=== PATIENT | male | born 1955 | race Caucasian/White ===

== ENCOUNTER 2017-05-30 17:28 | Emergency (ER) | payer MEDICAID ==
[~2017-05-30] VITALS: Ht 180.3 cm; Wt 102.1 kg
[~2017-05-30 17:28] MED LIST: AMARYL 2MG TABLE2 MG PO; ANAPROX DS550 MG PO; CYCLOBENZAPRINE10 M3 PO; GABAPENTIN300 MG PO; JANUVIA100 MG PO; METFORMIN HCL1000 MG PO; PAROXETINE20 MG PO
[2017-05-30] MEDS ORDERED: XARELTO20 MG PO (17:39)
[2017-05-30] MEDS ORDERED: ATORVASTATIN CA40 MG PO (17:39)
[2017-05-30] MEDS ORDERED: LISINOPRIL5 MG PO (17:39)
[2017-05-30] MEDS ORDERED: PANTOPRAZOLE SO40 M1 PO (17:39)
[2017-05-30] MEDS ORDERED: TAMSULOSIN HCL0.4 MG PO (17:40)
--- OUTSIDE RECORDS SUMMARY | 2017-05-30 17:41 | External Medical Summary Rpt ---
Author Author JOE Address Unknown Phone [email or web address] Purpose Continuity of Care Document - 04-06-2017 through 2016
--- OUTSIDE RECORDS SUMMARY | 2017-05-30 17:41 | External Medical Summary Rpt ---
Author Author JOE Address Unknown Phone [email or web address] Purpose Continuity of Care Document - 04-06-2017 through 2016
--- OUTSIDE RECORDS SUMMARY | 2017-05-30 17:42 | External Medical Summary Rpt ---
Demographics Preferred Language French Marital Status Unknown Druze Affiliation Unknown Race Unknown Ethnic Group Unknown Author Author , JOE PAIGE Address Unknown Phone Immunization Unable to retrieve immunization data due to connection failure with Immunization Registry. Please try again later.
--- OUTSIDE RECORDS SUMMARY | 2017-05-30 17:42 | External Medical Summary Rpt ---
Author Author [employer] Hunt, [employer] Organization [employer] Address Unknown Phone Unavailable Results Basic metabolic panel in Blood Observa Value Referen Units Interpr Notes Date tion ce etation Range Urea 7 - 18 mg/dL High No Apr 06 nitrogen informati 2017 9:04 [Mass/vol on in AM ume] in source Serum or data Plasma Calcium 8.5 - mg/dL Normal No Apr 06 [Mass/vol 10.1 informati 2017 9:04 ume] in on in AM Serum or source Plasma data Chloride 98 - 107 mmoL/L Normal No Mar 7 [Moles/vo informati 2017 9:04 lume] in on in AM Serum or source Plasma data Carbon 21.0 - mmoL/L Normal No Apr 06 dioxide, 32.0 informati 2017 9:04 total on in AM [Moles/vo source lume] in data Serum or Plasma Creatinin 0.70 - mg/dL High No Mar 7 e 1.30 informati 2017 9:04 [Mass/vol on in AM ume] in source Serum or data Plasma Estimated >60 ML/MIN No REFERENCE Lazarus 7 informati RANGE: 2017 9:04 glomerula on in >60 AM r source ML/MIN/1. filtratio data 73 SQUARE n rate METERSIf (GF this patient is -A merican, then multiply theresult by 1.210. Glucose 74 - 106 mg/dL High No Mar 7 [Mass/vol informati 2017 9:04 ume] in on in AM Serum or source Plasma data Potassium 3.5 - 5.1 mmoL/L Normal No Mar 7 informati 2017 9:04 [Moles/vo on in AM lume] in source Serum or data Plasma Sodium 136 - 145 mmoL/L Low No Mar 7 [Moles/vo informati 2017 9:04 lume] in on in AM Serum or source Plasma data Thyroxine (T4) free [Mass/volume] in Serum or Plasma Observa Value Referen Units Interpr Notes Date tion ce etation Range Thyroxine 0.76 - ng/dL Normal No Apr 06 (T4) 1.46 informati 2017 9:04 free on in AM [Mass/vol source ume] in data Serum or Plasma Lipid 1996 panel in Serum or Plasma Observa Value Referen Units Interpr Notes Date tion ce etation Range Cholester < 200 mg/dL No No Apr 06 ol informati informati 2017 9:04 [Moles/vo on in on in AM lume] in source source Unspecifi data data ed specimen Cholester 40 - 60 MG/DL Normal No Apr 06 ol in HDL informati 2017 9:04 on in AM [Mass/vol source ume] in data Serum or Plasma Cholester 0 - 130 mg/dL Normal No Apr 06 ol in LDL informati 2017 9:04 on in AM [Mass/vol source ume] in data Serum or Plasma by calculati on Triglycer 30 - 200 mg/dL Normal No Apr 06 aure informati 2017 9:04 [Moles/vo on in AM lume] in source Serum or data Plasma Cholester 0 - 40 No Normal No Apr 06 ol in informati informati 2017 9:04 VLDL on in on in AM [Mass/vol source source ume] in data data Serum or Plasma Hepatic function 2000 panel in Serum or Plasma Observa Value Referen Units Interpr Notes Date tion ce etation Range Albumin 3.4 - 5.0 gm/dL Normal No Apr 06 [Mass/vol informati 2017 9:04 ume] in on in AM Serum or source Plasma data Alkaline 46 - 116 U/L Normal No Apr 06 phosphata informati 2017 9:04 se on in AM [Enzymati source c data activity/ volume] in Serum or Plasma Bilirubin 0.0 - 0.2 mg/dL Normal No Apr 06 .direct informati 2017 9:04 [Mass/vol on in AM ume] in source Serum or data Plasma Bilirubin 0 - 0.9 mg/dL Normal No Apr 06 .indirect informati 2017 9:04 on in AM [Mass/vol source ume] in data Serum or Plasma Bilirubin 0.2 - 1.0 mg/dL Normal No Apr 06 .total informati 2017 9:04 [Mass/vol on in AM ume] in source Serum or data Plasma Aspartate 15 - 37 U/L Low No Apr 06 informati 2017 9:04 aminotran on in AM sferase source [Enzymati data c activity/ volume] in Serum or Plasma Alanine 12 - 78 U/L Normal No Apr 06 aminotran informati 2017 9:04 sferase on in AM [Enzymati source c data activity/ volume] in Serum or Plasma Protein 6.4 - 8.2 gm/dL Normal No Apr 06 [Mass/vol informati 2017 9:04 ume] in on in AM Serum or source Plasma data Thyrotropin [Units/volume] in Serum or Plasma Observa Value Referen Units Interpr Notes Date tion ce etation Range Thyrotrop 0.358 - uIU/ml Normal No Apr 06 in 3.740 informati 2017 9:04 [Units/vo on in AM lume] in source Serum or data Plasma CBC W Auto Differential panel in Blood Observa Value Referen Units Interpr Notes Date tion ce etation Range Basophils 0 - 0.2 K/MM3 Normal No Apr 06 informati 2016 9:04 [#/volume on in AM ] in source Blood by data Automated count Basophils 0.1 - 2.0 % Normal No Apr 06 /100 informati 2017 9:04 leukocyte on in AM s in source Blood by data Automated count Eosinophi 0.0 - 0.4 K/mm3 Normal No Apr 06 ls informati 2017 9:04 [#/volume on in AM ] in source Blood by data Automated count Eosinophi 0.1 - % Normal No Apr 06 ls/100 12.0 informati 2017 9:04 leukocyte on in AM s in source Blood by data Automated count Granulocy 1.3 - 8.0 K/mm3 Normal No Apr 06 ryan informati 2017 9:04 [#/volume on in AM ] in source Blood by data Automated count Granulocy 37.0 - % Normal No Apr 06 ryan/100 80.0 informati 2017 9:04 leukocyte on in AM s in source Blood by data Automated count Hematocri 42.0 - % Normal No Apr 06 t [Volume 52.0 informati 2016 9:04 on in AM Fraction] source of Blood data Hemoglobi 14.1 - g/dL Normal No Apr 06 n 18.0 informati 2016 9:04 [Mass/vol on in AM ume] in source Blood data Lymphocyt 0.7 - 4.5 K/mm3 Normal No Apr 06 es informati 2016 9:04 [#/volume on in AM ] in source Unspecifi data ed specimen by Automated count Lymphocyt 10 - 50 % Normal No Mar 7 es informati 2017 9:04 [#/volume on in AM ] in source Unspecifi data ed specimen by Automated count Erythrocy 27 - 31.2 pg High No Mar 7 te mean informati 2017 9:04 corpuscul on in AM ar source hemoglobi data n [Entitic mass] Erythrocy 31.8 - g/dl Normal No Apr 06 te mean 35.4 informati 2017 9:04 corpuscul on in AM ar source hemoglobi data n concentra tion [Mass/vol ume] by Automated count Erythrocy 82.2 - fl Normal No Apr 06 te mean 97.8 informati 2017 9:04 corpuscul on in AM ar volume source [Entitic data volume] by Automated count Monocytes 0.1 - 1.0 K/mm3 Normal No Mar 7 informati 2017 9:04 [#/volume on in AM ] in source Blood by data Automated count Monocytes 1.7 - 9.3 % Normal No Mar 7 /100 informati 2017 9:04 leukocyte on in AM s in source Blood by data Automated count Platelet 7.4 - fl Low No Apr 06 mean 10.4 informati 2017 9:04 volume on in AM [Entitic source volume] data in Blood by Automated count Platelets 142 - 424 K/mm3 Normal No Mar 7 informati 2017 9:04 [#/volume on in AM ] in source Blood data Erythrocy 4.6 - 6.2 M/mm3 Normal No Mar 7 ryan informati 2017 9:04 [#/volume on in AM ] in source Amniotic data fluid Erythrocy 11.5 - % Normal No Apr 06 te 17.5 informati 2017 9:04 distribut on in AM ion width source [Entitic data volume] by Automated count Leukocyte 4.8 - K/MM3 Normal No Mar 7 s 10.8 informati 2017 9:04 [#/volume on in AM ] in source Blood data
--- OUTSIDE RECORDS SUMMARY | 2017-05-30 17:42 | External Medical Summary Rpt ---
Demographics Preferred Language Kiswahili Marital Status Unknown Yarsanism Affiliation Unknown Race Unknown Ethnic Group Unknown Author Author , JOE PAIGE Address Unknown Phone Immunization Unable to retrieve immunization data due to connection failure with Immunization Registry. Please try again later.
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
[2017-05-30 17:57] LABS: HEMOGLOBIN 14.1 g/dL (14.1-18.0); LYMPH # 1.8 K/mm3 (0.7-4.5); LYMPH % 28.1 % (10-50)
--- NOTE | 2017-05-30 18:32 | RADIOLOGY REPORT PS360 ---
CT HEAD WITHOUT CONTRAST CT BONE WINDOWS included ORDERING PHYSICIAN : Anjana Alexandre MD PATIENT AGE: 62 years GENDER: Male PROCEDURE: Routine axial images headwithout contrast. Brain & bone windows HISTORY: FALL, POSSIBLE LOC fall with loss of consciousness. Neck pain COMPARISON: No prior head CT studies FINDINGS: No acute intracranial findings. No hemorrhage. No mass effect or mass lesion. No subdural nor extra-axial collection. . Mild diffuse cerebral atrophy with this there is mild prominence of lateral ventricles and basal cisterns however the remaining clear satisfactory overall.. The posterior fossa appear satisfactory and unremarkable. The skull is intact. The visualized portions of the paranasal sinuses are clear. Mastoid air cells, middle ear & IACs are unremarkable. IMPRESSION: No acute intracranial findings. . Mild cerebral atrophy age-appropriate
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
[2017-05-30 19:10] VITALS: BP 107/69
--- NOTE | 2017-05-30 19:52 | RADIOLOGY REPORT PS360 ---
CHEST-PORTABLE Ordering Physician: Anjana Alexandre MD Patient Age: 62 years: Male HISTORY: near syncope TECHNIQUE: AP portable upright chest COMPARISON September 24, 2014 CT chestOctober 2015 CXR FINDINGS Right chest stable 2 small nodular seen just lateral to the right infrahilar region are again evident were discussed on A July 2016 CXR . These were also previously seen and discussed on a CT chest 2013,.-Appear Relatively stable since that time. Actually less evident on today's study due to overlapping structures. Left lung stable. Left lung Appears clear unremarkable. No new findings in either chest. Heart anitra and mediastinal structures unchanged. Mild arthritic changes right shoulder. IMPRESSION: =- No new nor acute findings at chest . Small nodular densities right lung, just lateral to the right infrahilar region, are again noted. These appears similar to 2014 CT chest. Which supports indolent/benign nature.. These Can be followed.
== END 2017-05-30 19:11 | disposition home or self-care (01) ==
LOC: ER 17:28
PROVIDERS: Emergency Medicine
DX: R55 Syncope and collapse (principal); S00.81XA Abrasion of other part of head, initial encounter; W18.39XA Other fall on same level, initial encounter; Y92.9 Unspecified place or not applicable

== ENCOUNTER 2017-07-07 07:54 | Day surgery (SDC) | payer MEDICAID ==
[~2017-07-07 07:54] MED LIST changes: +ATORVASTATIN CA40 MG PO; +LISINOPRIL5 MG PO; +PANTOPRAZOLE SO40 M1 PO; +TAMSULOSIN HCL0.4 MG PO; +XARELTO20 MG PO
[2017-07-07 12:12] VITALS: BP 151/84
--- NOTE | 2017-07-07 13:36 | Operative Note ---
See Addendum Procedure: Date of procedure: 07/07/17 Time of procedure: 09 Procedure performed: Implantation of loop recorder Indication: Syncope Technique: Technique: 1 percent lidocaine with epinephrine used to anesthetize the size. The LEFT anterior aspect of the chest along the LEFT sternal border. Using the preformed scalpel, an incision was made in the loop recorder was placed subcutaneously without difficulty. Following the deployment of the loop recorder interrogation of the device was performed to ensure appropriate voltage was being detected. Once this was verified (0.37 mV). Steri-Strips were placed over the incision and the patient was prepped to discharge home. Patient tolerated procedure well with minimal discomfort. Impression: Successful deployment of loop recorder Serial number: [id number] Plan: Routine post op care at 0747
--- NOTE | 2017-07-07 13:36 | Operative Note ---
See Addendum Procedure: Date of procedure: 07/07/17 Time of procedure: 09 Procedure performed: Implantation of loop recorder Indication: Syncope Technique: Technique: 1 percent lidocaine with epinephrine used to anesthetize the size. The LEFT anterior aspect of the chest along the LEFT sternal border. Using the preformed scalpel, an incision was made in the loop recorder was placed subcutaneously without difficulty. Following the deployment of the loop recorder interrogation of the device was performed to ensure appropriate voltage was being detected. Once this was verified (0.37 mV). Steri-Strips were placed over the incision and the patient was prepped to discharge home. Patient tolerated procedure well with minimal discomfort. Impression: Successful deployment of loop recorder Serial number: [id number] Plan: Routine post op care at 0146
== END 2017-07-07 10:25 ==
LOC: CATHLAB 07:54
PROVIDERS: Internal Medicine
PROC: 0JH632Z Insertion of Monitoring Device into Chest Subcutaneous Tissue and Fascia, Percutaneous Approach (ICD-10-PCS; principal; 2017-07-07 08:30)
DX: R55 Syncope and collapse (principal); R00.1 Bradycardia, unspecified; E11.9 Type 2 diabetes mellitus without complications; I82.509 Chronic embolism and thrombosis of unspecified deep veins of unspecified lower extremity; Z79.01 Long term (current) use of anticoagulants; I25.10 Atherosclerotic heart disease of native coronary artery without angina pectoris
CPT/HCPCS: C1764; G0463

== ENCOUNTER 2017-07-21 11:47 | Emergency (ER) | payer MEDICAID ==
[~2017-07-21] VITALS: Ht 180.3 cm; Wt 92.1 kg
[2017-07-21 12:12] LABS: LYMPH # 3.1 K/mm3 (0.7-4.5); LYMPH % 35.5 % (10-50)
[2017-07-21 12:18] LABS: HEMOGLOBIN 16.6 g/dL (14.1-18.0)
[2017-07-21 12:19] LABS: STOOL OCCULT BLOOD NEGATIVE (NEG)
--- NOTE | 2017-07-21 13:07 | Emergency Room Report ---
History of Present Illness Time Seen by [id number] Presenting Problem in Triage Pt arrived:Walked Presenting Problem:PT REPORTS RECAL BLEEDING THAT BEGAN TUESDAY NIGHT OF THIS PAST WEEK. PT REPORTS SEVERAL EPISODES A DAY OF FEELING THE NEED TO HAVE A BM BUT ONLY BRIGHT RED BLOOD WAS NOTED IN TOILET. 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 N Clinical Suspician of Infection? N Mental Status: 1 - Regular (Normal Baseline) Sepsis Risk:Low Sepsis Risk Have you (or family members/close friends) recently traveled outside the [place]? N If Yes, where/when: Have you had exposure to infectious disease within the past month? N TB? Other? Specify: Source patient, RN notes reviewed, RN/MD Exam Limitations no limitations Comment This is his 62-year-old male patient arriving to the emergency room with bright red blood per rectum since last Tuesday. Patient has seen his primary care provider, Corazon Le since, but did not mention this particular complaint to her. 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 Patient has had his last colonoscopy in December 2016 at [facility]. Patient does not recall the specialist's name. He has also seen Dr. Rojas in the past, at [facility], was advised that he has a history of colonic polyps, all benign. ALLERGIES Coded Allergies: No Known Allergies (12/30/15) Home Medications Reported Medications Glimepiride (Amaryl 2MG Tablet) 2 MG PO BID Lisinopril 5 MG PO DAILY #30 Atorvastatin Calcium 40 MG PO DAILY #30 Pantoprazole Sodium 40 MG PO DAILY #30 Rivaroxaban (Xarelto) 20 MG PO DAILY #30 TAMSULOSIN HCL (Tamsulosin HCl) 0.4 MG PO DAILY #30 PAROXETINE (Paroxetine HCl) 40 MG PO DAILY METFORMIN HCL (Metformin 1000MG) 1,000 MG PO BID Sitagliptin Phosphate (Januvia 100MG) 100 MG PO DAILY History Medical History General CAD? No Angina: No IN: No Hypertension? No Hyperlipidemia? No CHF? No DVT? Yes PE? No COPD? Yes Asthma? No Anemia? No GERD? No Gastric ulcers? No GI Bleed? No Hernia? No Thyroid Problems? No Hypothyroidism? No CVA? No Seizures? No Diabetes? Yes Insulin Dependent: No Insulin Pump: No Home FSBS? No Renal Insuffiency? No End Stage Renal Disease? No UTI? No Stones? No BPH? No GB Disease: No Nephritic Syndrome? No Asplenia? No Hepatitis? No Sickle Cell Disease? No Arthritis? No Migraines? No Cataracts? No Glaucoma? No MRSA? No HIV? No TB? No Anxiety? No Depression? Yes Cancer? No More? 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 Family History Family Hx Diabetes Yes CAD Yes Hypertension No Hyperlipidemia No Cancer Yes TB No Social History Smoking Hx Smoker: Current Every Day Smoker Tobacco: Yes Type Cigarettes Packs/day 1 1/2 - 2 Packs Alcohol Alcohol: No Review of Systems All Other Systems Reviewed and Negative Gastrointestinal see HPI, other (rectal bleeding) Physical Exam Vital Signs Vital Signs Date Time Temp Pulse Resp B/P Pulse O2 O2 Flow FiO2 Ox Delivery Rate 07/21 1318 98.0 72 16 123/83 97 07/21 1316 98.0 72 16 123/83 97 07/21 1154 97.9 78 18 119/81 97 General Appearance normal appearance, WD/WN, no apparent distress Respiratory Status Yes: trachea midline, chest symmetrical, non tender chest. No: respiratory distress. Lung Sounds bilateral: normal breath sounds, lungs clear. 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 No Comment Patient appears medically stable, in no acute distress. His blood work fails to reveal any anemia. Advised patient to follow-up with his gastrointestinal specialist for a reevaluation and possible repeat colonoscopy. Results/Orders Laboratory Tests 07/21/17 1215: Stool Occult Blood NEGATIVE 07/21/17 1205: TSH 0.94 07/21/17 1205: Sodium 128 L, Potassium 4.7, Chloride 94 L, Carbon Dioxide 25, BUN 38 H, Creatinine 1.3, Estimated Creat Clear 75, Estimated GFR (MDRD) 56, Glucose 277 H, Calcium 9.6, Total Bilirubin 0.9, AST 23, ALT 57, Alkaline Phosphatase 96, Total Protein 7.5, Albumin 3.9, Globulin 3.6 H, Albumin/Globulin Ratio 1.1, WBC 8.7, RBC 5.01, Hgb 16.6, Hct 45.8, MCV 91.6, RDW 12.1, Plt Count 258, MPV 7.2 L , Gran % 56.5, Gran # 4.9, Lymphocytes % 35.5, Monocytes % 5.3, Eosinophils % 2.4, Basophils % 0.3, Lymphocytes # 3.1, Monocytes # 0.5, Eosinophils # 0.2, Basophils # 0.0, PUBS MCHC 35.7 H, MCH 32.7 H Current Medication Orders Sig/Andree Start time Last Medication Dose Route Stop Time Status Admin Sodium Chloride 10 ML PRN PRN 07/21 1215 DCD IV 07/22 1202 Orders Procedure Date/time Status THYROID STIMULATING HORMONE 07/21 1211 Complete IV SALINE LOCK 07/21 1202 Active STOOL OCCULT BLOOD 07/21 1202 Complete CBC WITH AUTO DIFF 07/21 1155 Complete CHEM 12 PROFILE 07/21 1155 Complete Departure Departure Time of Disposition 1304 Disposition DC Home or Self Care(routine) Clinical Impression Primary Impression: Rectal bleeding Condition STABLE Referrals Arnoldo Abdalla MD: Today after leaving ER Sharri Loja APRN (Family) RONA ROJAS MD: Today after leaving ER Patient Instructions DI for Rectal Bleeding Additional Instructions Please follow-up with 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 Rojas or Dr. Abdalla, within th enext 3-5days. Please continue the Xarelto at this time. Discharge Counseling Counseled pt/family regarding diagnosis, test results, medications/RX, home care, follow up needs Comment Please follow-up with 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 Rojas or Dr. Abdalla, within th enext 3-5days. Please continue the Xarelto at this time. ED Critical Care Critical Care No at [id number]
--- NOTE | 2017-07-21 13:07 | Emergency Room Report ---
History of Present Illness Time Seen by [id number] Presenting Problem in Triage Pt arrived:Walked Presenting Problem:PT REPORTS RECAL BLEEDING THAT BEGAN TUESDAY NIGHT OF THIS PAST WEEK. PT REPORTS SEVERAL EPISODES A DAY OF FEELING THE NEED TO HAVE A BM BUT ONLY BRIGHT RED BLOOD WAS NOTED IN TOILET. 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 N Clinical Suspician of Infection? N Mental Status: 1 - Regular (Normal Baseline) Sepsis Risk:Low Sepsis Risk Have you (or family members/close friends) recently traveled outside the [place]? N If Yes, where/when: Have you had exposure to infectious disease within the past month? N TB? Other? Specify: Source patient, RN notes reviewed, RN/MD Exam Limitations no limitations Comment This is his 62-year-old male patient arriving to the emergency room with bright red blood per rectum since last Tuesday. Patient has seen his primary care provider, Corazon Le since, but did not mention this particular complaint to her. 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 Patient has had his last colonoscopy in December 2016 at [facility]. Patient does not recall the specialist's name. He has also seen Dr. Rojas in the past, at [facility], was advised that he has a history of colonic polyps, all benign. ALLERGIES Coded Allergies: No Known Allergies (12/30/15) Home Medications Reported Medications Glimepiride (Amaryl 2MG Tablet) 2 MG PO BID Lisinopril 5 MG PO DAILY #30 Atorvastatin Calcium 40 MG PO DAILY #30 Pantoprazole Sodium 40 MG PO DAILY #30 Rivaroxaban (Xarelto) 20 MG PO DAILY #30 TAMSULOSIN HCL (Tamsulosin HCl) 0.4 MG PO DAILY #30 PAROXETINE (Paroxetine HCl) 40 MG PO DAILY METFORMIN HCL (Metformin 1000MG) 1,000 MG PO BID Sitagliptin Phosphate (Januvia 100MG) 100 MG PO DAILY History Medical History General CAD? No Angina: No NE: No Hypertension? No Hyperlipidemia? No CHF? No DVT? Yes PE? No COPD? Yes Asthma? No Anemia? No GERD? No Gastric ulcers? No GI Bleed? No Hernia? No Thyroid Problems? No Hypothyroidism? No CVA? No Seizures? No Diabetes? Yes Insulin Dependent: No Insulin Pump: No Home FSBS? No Renal Insuffiency? No End Stage Renal Disease? No UTI? No Stones? No BPH? No GB Disease: No Nephritic Syndrome? No Asplenia? No Hepatitis? No Sickle Cell Disease? No Arthritis? No Migraines? No Cataracts? No Glaucoma? No MRSA? No HIV? No TB? No Anxiety? No Depression? Yes Cancer? No More? 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 Family History Family Hx Diabetes Yes CAD Yes Hypertension No Hyperlipidemia No Cancer Yes TB No Social History Smoking Hx Smoker: Current Every Day Smoker Tobacco: Yes Type Cigarettes Packs/day 1 1/2 - 2 Packs Alcohol Alcohol: No Review of Systems All Other Systems Reviewed and Negative Gastrointestinal see HPI, other (rectal bleeding) Physical Exam Vital Signs Vital Signs Date Time Temp Pulse Resp B/P Pulse O2 O2 Flow FiO2 Ox Delivery Rate 07/21 1318 98.0 72 16 123/83 97 07/21 1316 98.0 72 16 123/83 97 07/21 1154 97.9 78 18 119/81 97 General Appearance normal appearance, WD/WN, no apparent distress Respiratory Status Yes: trachea midline, chest symmetrical, non tender chest. No: respiratory distress. Lung Sounds bilateral: normal breath sounds, lungs clear. 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 No Comment Patient appears medically stable, in no acute distress. His blood work fails to reveal any anemia. Advised patient to follow-up with his gastrointestinal specialist for a reevaluation and possible repeat colonoscopy. Results/Orders Laboratory Tests 07/21/17 1215: Stool Occult Blood NEGATIVE 07/21/17 1205: TSH 0.94 07/21/17 1205: Sodium 128 L, Potassium 4.7, Chloride 94 L, Carbon Dioxide 25, BUN 38 H, Creatinine 1.3, Estimated Creat Clear 75, Estimated GFR (MDRD) 56, Glucose 277 H, Calcium 9.6, Total Bilirubin 0.9, AST 23, ALT 57, Alkaline Phosphatase 96, Total Protein 7.5, Albumin 3.9, Globulin 3.6 H, Albumin/Globulin Ratio 1.1, WBC 8.7, RBC 5.01, Hgb 16.6, Hct 45.8, MCV 91.6, RDW 12.1, Plt Count 258, MPV 7.2 L , Gran % 56.5, Gran # 4.9, Lymphocytes % 35.5, Monocytes % 5.3, Eosinophils % 2.4, Basophils % 0.3, Lymphocytes # 3.1, Monocytes # 0.5, Eosinophils # 0.2, Basophils # 0.0, PUBS MCHC 35.7 H, MCH 32.7 H Current Medication Orders Sig/Andree Start time Last Medication Dose Route Stop Time Status Admin Sodium Chloride 10 ML PRN PRN 07/21 1215 DCD IV 07/22 1202 Orders Procedure Date/time Status THYROID STIMULATING HORMONE 07/21 1211 Complete IV SALINE LOCK 07/21 1202 Active STOOL OCCULT BLOOD 07/21 1202 Complete CBC WITH AUTO DIFF 07/21 1155 Complete CHEM 12 PROFILE 07/21 1155 Complete Departure Departure Time of Disposition 1304 Disposition DC Home or Self Care(routine) Clinical Impression Primary Impression: Rectal bleeding Condition STABLE Referrals Arnoldo Abdalla MD: Today after leaving ER Sharri Loja APRN (Family) RONA ROJAS MD: Today after leaving ER Patient Instructions DI for Rectal Bleeding Additional Instructions Please follow-up with your [facility] pharmacist's aide (that has performed your last colonoscopy in December 2016), or, alternatively, see one of the local general surgeons, listed above, Dr. Rojas or Dr. Abdalla, within th enext 3-5days. Please continue the Xarelto at this time. Discharge Counseling Counseled pt/family regarding diagnosis, test results, medications/RX, home care, follow up needs Comment Please follow-up with your [facility] pharmacist's aide (that has performed your last colonoscopy in December 2016), or, alternatively, see one of the local general surgeons, listed above, Dr. Rojas or Dr. Abdalla, within th enext 3-5days. Please continue the Xarelto at this time. ED Critical Care Critical Care No at 1440
[2017-07-21 13:18] VITALS: BP 123/83
== END 2017-07-21 13:17 | disposition home or self-care (01) ==
LOC: UTC 11:47 → ER 11:51 → UTC 11:51 → ER 13:17
PROVIDERS: Emergency Medicine
DX: K62.5 Hemorrhage of anus and rectum (principal); Z87.19 Personal history of other diseases of the digestive system; F17.210 Nicotine dependence, cigarettes, uncomplicated; E11.9 Type 2 diabetes mellitus without complications; Z79.899 Other long term (current) drug therapy
CPT/HCPCS: G0328